=== PATIENT | male | born 1965 | race Caucasian/White ===

== ENCOUNTER 2024-09-13 18:38 | Outpatient (CLI) | payer BC, SELFPAY ==
--- NOTE | 2024-09-13 19:00 | MR_ITS ---
[address] [address] Phone:?[phone] Fax:?[phone] Referring Physician Information: Dejan De Jesus M.D. [address] [facility] [address] Phone:?[phone] Fax:?[phone] Patient:Ananya Islas D.O.B:?1965 Sex:?Male Phone:?[phone] [facility] MRN:?[id number] Exam Date:?09/13/2024 EXAM: MRI of the RIGHT SHOULDER, without contrast CLINICAL INFORMATION: Male, 58 years old, with shoulder pain INDICATION: Evaluate for rotator cuff tear PRIOR SURGERY: None reported. PLAIN FILMS: Radiographs 09/07/2024 COMPARISONS: No prior MRIs available. TECHNICAL INFORMATION: Using a 1.5T MR scanner and a localizing surface coil: Coronals: PD, T2FS Sagittals: PDFS, T2 Axials: PD, PDFS SEDATION: None CONTRAST: None FINDINGS: Bones: Proximal humerus: No fracture or marrow edema/pathology. No humeral Hill-Sachs or reverse Hill-Sachs lesion/impaction or contusion. Glenoid: No fracture or marrow edema/pathology. No osseous Bankart lesion. Rotator cuff and muscles/tendons: Supraspinatus: No tendinopathy, tear or atrophy. Infraspinatus: No tendinopathy, tear or atrophy. Teres minor: No tendinopathy, tear or atrophy. Subscapularis: No tendinopathy, tear or atrophy. Deltoid: No strain or atrophy. Coracoacromial arch: Acromion morphology: The acromion has type I morphology. No discrete subacromial osseous spur or os acromiale. Acromiohumeral space: The acromiohumeral space is within normal limits. Coracohumeral space: The coracohumeral space is within normal limits. Acromioclavicular joint: Joint: Mild AC joint degenerative change with mild subchondral cystic change and marrow edema in the distal clavicle. No impinging inferior osteophytosis. Ligaments: Coracoclavicular ligaments are intact. Bursae: Subacromial-subdeltoid: Mild subacromial bursitis Subcoracoid: No convincing subcoracoid bursal thickening/bursitis. Biceps tendon: The long head of the biceps tendon is present within the bicipital groove. The intra-articular and extra-articular segments are intact without tendinosis, tenosynovitis, or displacement. Glenohumeral joint: Effusion/cyst: No significant glenohumeral joint effusion. Articular cartilage: Humeral head: No osteochondral abnormalities. Glenoid: There is chondral thinning of the inferior glenoid with grade III chondromalacia anteriorly and inferiorly, measuring approximately 0.9 x 0.9 cm. Minimal underlying cystic changes seen in this region of the glenoid. Loose bodies: No discrete intra-articular body within the joint. Labrum:?No discrete SLAP tear. There appears attenuation, and tearing, and degeneration of the anterior and anteroinferior labrum, though this is suboptimally evaluated given lack of intra-articular joint fluid or contrast. No paralabral ganglion cyst is identified. Inferior glenohumeral ligament/axillary pouch:?Intact. The axillary pouch is normal in thickness and signal. No evidence of adhesive capsulitis or capsular injury. IMPRESSION: 1. Attenuation, tearing, and degeneration of the anterior and anteroinferior labrum. 2. Small region of grade III chondromalacia with mild subchondral cystic change in the anteroinferior glenoid. Humeral head articular cartilage appears predominantly intact. 3. Mild AC joint arthrosis without impinging inferior osteophytosis. 4. Mild subacromial bursitis. 5. No tendinopathy, tear, or displacement of the long head of the biceps tendon. KME Electronically signed on 09/14/2024 3:34:00 PM by Leann Parker M.D.
== END 2024-09-13 18:39 | disposition home or self-care (01) ==
PROVIDERS: PCP Family Medicine; Visit Provider Orthopaedic Surgery Sports Medicine
DX: M25.511 Pain in right shoulder (principal); M94.211 Chondromalacia, right shoulder; S43.491A Other sprain of right shoulder joint, initial encounter; M19.011 Primary osteoarthritis, right shoulder; M75.51 Bursitis of right shoulder; M75.101 Unspecified rotator cuff tear or rupture of right shoulder, not specified as traumatic
CPT/HCPCS: 73221